=== PATIENT | female | born 1995 ===

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

== ENCOUNTER 2018-02-02 10:53 | Emergency (ER) | payer MEDICAID ==
[2018-02-02 11:14] VITALS: BMI 20.7
--- NOTE | 2018-02-02 11:57 | ED PDOC ---
HPI: Abdomen Time Seen by Provider: 02/02/18 11:56 Chief Complaint (Nursing): Abdominal Pain Chief Complaint (Provider): PELVIC PAIN History Per: Patient (22 Y/O FEMALE H/O CHLAMYDIA LAST YEAR HERE WITH PELVIC PAIN INTERMITTENT X 2 MONTHS. PATIENT CONCERNED FOR STD. STATES SHE IS SEXUALLY ACTIVE NOT USING PROTECTION. DENIES ANY DYSURIA/FEVERS/CHILLS/ VOMITING.) Past Medical History Reviewed: Historical Data, Nursing Documentation, Vital Signs Vital Signs: Last Vital Signs Temp 97.9 F 02/02/18 11:13 Pulse 80 02/02/18 11:13 Resp 18 02/02/18 11:13 BP 115/74 02/02/18 11:13 Pulse Ox 100 02/02/18 11:57 - Medical History PMH: Depression - Family History Family History: States: Unknown Family Hx - Immunization History Hx Tetanus Toxoid Vaccination: No Hx Influenza Vaccination: No Hx Pneumococcal Vaccination: No - Home Medications Home Medications: Ambulatory Orders Medication Instructions Recorded Nitrofurantoin Macrocrystals 1 cap PO BID #14 cap 01/03/17 [Macrobid] Phenazopyridine [Pyridium] 200 mg PO TID #15 tab 01/03/17 - Allergies Allergies/Adverse Reactions: Allergies Allergy/AdvReac Type Severity Reaction Status Date / Time No Known Allergies Allergy Verified 01/03/17 18:05 Review of Systems ROS Statement: Except As Marked, All Systems Reviewed And Found Negative Gastrointestinal: Positive for: Abdominal Pain Physical Exam - Reviewed Nursing Documentation Reviewed: Yes Vital Signs Reviewed: Yes - Physical Exam Appears: Positive for: Well, Non-toxic, No Acute Distress Head Exam: Positive for: ATRAUMATIC, NORMAL INSPECTION, NORMOCEPHALIC Skin: Positive for: Normal Color, Warm, DRY Eye Exam: Positive for: EOMI, Normal appearance, PERRL ENT: Positive for: Normal ENT Inspection Neck: Positive for: Normal, Painless ROM Cardiovascular/Chest: Positive for: Regular Rate, Rhythm Respiratory: Positive for: CNT, Normal Breath Sounds Gastrointestinal/Abdominal: Positive for: Normal Exam, Soft Pelvic Exam: Positive for: Other (NO CMT. MINIMAL TENDERNESS UTERUS/LEFT ADNEXAL ) Back: Positive for: Normal Inspection Extremity: Positive for: Normal ROM Neurologic/Psych: Positive for: Alert, Oriented - Laboratory Results Urine POC: Negative Urine dip results: Positive for: Leukocyte Esterase (TRACE ). 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 G/C SENT ZITHROMAX 1 GM PO X 1 DOSE ROCEPHIN 250 MG IM X 1 DOSE Disposition - Clinical Impression Clinical Impression: Pelvic pain - Patient ED Disposition Is Patient to be Admitted: No - Disposition Disposition: Routine/Home Disposition Time: 12:27 Condition: FAIR Instructions: Chronic Pelvic Pain (DC), Condom Options
[2018-02-02] MEDS ORDERED: cefTRIAXone (Rocephin) 250 mg Inj IM ONE (12:10)
[2018-02-02 12:24] LABS: SQUAMOUS EPITHIAL 25 /hpf (0-5); URINE BILIRUBIN NEGATIVE (NEGATIVE); URINE BLOOD NEGATIVE (NEGATIVE); URINE CLARITY CLOUDY (Clear); URINE COLOR YELLOW (YELLOW); URINE GLUCOSE (UA) NEG (Normal); URINE LEUKOCYTE ESTERASE SMALL Leu/uL (Negative); URINE PROTEIN 30 mg/dL (NEGATIVE); URINE UROBILINOGEN 0.2-1.0 mg/dL (0.2-1.0)
[2018-02-02] MEDS ORDERED: cefTRIAXone (Rocephin) 250 mg Inj ONE (12:40)
[2018-02-02] MEDS ORDERED: Sterile Water 10 ML IV ONE (12:43)
[2018-02-02 13:14] VITALS: BP 110/70; PULSE 68; RESP 14; TEMP 97.1; O2SAT 99
== END 2018-02-02 13:13 | disposition home or self-care (01) ==
LOC: H.ER 10:53
DX: R10.2 Pelvic and perineal pain (principal); Z86.59 Personal history of other mental and behavioral disorders
CPT/HCPCS: 81003; 81025; 87086; 87491; 87591; 96372; 99284; J0696

== ENCOUNTER 2018-08-25 16:25 | Emergency (ER) | payer MEDICAID, OTHER ==
[2018-08-25 16:25] VITALS: BMI 20.7
[2018-08-25 17:32] VITALS: RESP 16
[2018-08-25] MEDS ORDERED: cefTRIAXone (Rocephin) 250 mg Inj IM STA (17:37)
--- NOTE | 2018-08-25 17:43 | ED PDOC ---
HPI: Influenza Time Seen by Provider: 08/25/18 17:31 Chief Complaint: Cough, Cold, Congestion History Per: Patient Exam Limitations: no limitations Have you had recent travel within the past 21 days to any of: No Onset/Duration Of Symptoms: Days Symptoms include: fever (subjective), sore throat, cough Sick Contacts (Context): Family Member(s) Additional complaint(s):: 23 yo F with no medical problems presents with 2 complaints. First is 3 weeks of vaginal discharge or odor. She has been seen by her PMD twice, first told it was BV, started on antibiotics without improvement, then told yeast infection and completed treatment again with no improvement. She reports she is sexually active, uses condoms but has concerns for STDs and wants testing and treatment. Pt denies abdominal pain, nausea, vomiting, urinary symptoms, dysuria, hematuria, back pain. Second complaint in over 1 week of what started as sore throat then cough productive of phlegm, subjective fever in the beginning. She has taken Tylenol, none today. She reports both of her sisters were diagnosed with the flu. She has pain when swallowing, which has gotten better. Pt is able to swallow, denies drooling or difficulty breathing, or recent travel. PMD: Dr. Guillermo Mae LMP: 08/07 Past Medical History Reviewed: Historical Data, Nursing Documentation, Vital Signs Vital Signs: Last Vital Signs Temp 98.9 F 08/25/18 17:31 Pulse 93 H 08/25/18 17:31 Resp 16 08/25/18 17:31 BP 149/74 08/25/18 17:31 Pulse Ox 100 08/25/18 17:31 - Medical History PMH: Depression - Family History Family History: States: Unknown Family Hx - Social History Current smoker - smoking cessation education provided: No Alcohol: Occasional Drugs: Denies - Immunization History Hx Tetanus Toxoid Vaccination: No Hx Influenza Vaccination: No Hx Pneumococcal Vaccination: No - Home Medications Home Medications: Ambulatory Orders Medication Instructions Recorded Nitrofurantoin Macrocrystals 1 cap PO BID #14 cap 01/03/17 [Macrobid] Phenazopyridine [Pyridium] 200 mg PO TID #15 tab 01/03/17 - Allergies Allergies/Adverse Reactions: Allergies Allergy/AdvReac Type Severity Reaction Status Date / Time No Known Allergies Allergy Verified 08/25/18 17:31 Review of Systems Constitutional: Positive for: Fever (subjective and resolved) Cardiovascular: Negative for: Chest Pain Respiratory: Positive for: Cough. Negative for: Shortness of Breath, Hemoptysis Gastrointestinal: Negative for: Nausea, Vomiting, Abdominal Pain Genitourinary Female: Positive for: Vaginal Discharge. Negative for: Dysuria, Frequency, Pelvic Pain, Rash Physical Exam - Reviewed Nursing Documentation Reviewed: Yes - Physical Exam Comments: GENERALIZED APPEARANCE: Patient is AAO x 3, in no acute distress. SKIN: Warm, dry; (-) cyanosis. EYES: (-) conjunctival pallor. ENMT: Mucous membranes moist.(+)mild tonsil erythema, (+) exudate on right, no enlargement, (-)trismus (-)uvula deviation (-)airway obstruction EARs: TMs wnl NECK: (-) tenderness, (-) stiffness, (-) lymphadenopathy CHEST AND RESPIRATORY: (-) rales, (-) rhonchi, (-) wheezes; breath sounds equalbilaterally, (+) dry cough HEART AND CARDIOVASCULAR: (-) irregularity; (-) murmur, (-) gallop. NEURO AND PSYCH: Mental status as above; (-) focal findings. ABDOMEN: Soft; (-) tenderness, (-) guarding, (-) rebound; (-) CVAtenderness. EXTREMITIES: (-) deformity Medical Decision Making Medical Decision Makin:35 initial eval pt with viral vs bacterial URI and vaginal discharge, possible STD -- Urinalysis --GC/Chlamydia test -- Zithromax and Ceftriaxone -- U preg -- rapid strep -- influenza a&b -- CXR -- Re eval 19:10 flu and strep negative, CXR report as below, likely viral URI UA shows no UTI, treated for GC/CHlamydia, pending results tomorrow Discussed results, diagnosis, treatment, return precautions and f/u with pt who is understanding, in agreement and stable for dc - ECG O2 Sat by Pulse Oximetry: 100 Disposition - Clinical Impression Clinical Impression: URI (upper respiratory infection), Vaginal discharge - Patient ED Disposition Is Patient to be Admitted: No Counseled Patient/Family Regarding: Studies Performed, Diagnosis, Need For Followup - Disposition Referrals: Guillermo Mae MD [Medical Doctor] - Disposition: Routine/Home Disposition Time: 19:22 Condition: IMPROVED Additional Instructions: Return to ED for new or worsening symptoms, fever >100.4, difficulty breathing, chest pain, abdominal pain, urinary symptoms. Follow up with your doctor. Alternate between Tylenol and Ibuprofen for pain. Rest, drink plenty of fluids to stay hydrated, hot and cold to soothe throat. Instructions: Viral Upper Respiratory Infection, Adult (DC), Vaginal Discharge in Adults Forms: [facility] ([place]) Print Language: ICELANDIC - POA Present On Arrival: None
[2018-08-25 18:18] LABS: SQUAMOUS EPITHIAL 8 /hpf (0-5); URINE BACTERIA RARE (<OCC); URINE BILIRUBIN NEGATIVE (NEGATIVE); URINE BLOOD NEGATIVE (NEGATIVE); URINE CLARITY SLIGHTY-CLOUDY (Clear); URINE COLOR YELLOW (YELLOW); URINE GLUCOSE (UA) NEG (NEGATIVE); URINE LEUKOCYTE ESTERASE TRACE Leu/uL (Negative); URINE PROTEIN 30 mg/dL (NEGATIVE); URINE UROBILINOGEN 0.2-1.0 mg/dL (0.2-1.0)
--- NOTE | 2018-08-25 18:56 | RAD ---
HISTORY: cough COMPARISON: Chest x-ray performed 11/09/16 TECHNIQUE: Chest PA and lateral, 2 views FINDINGS: LUNGS: No focal consolidation. Please note that chest x-ray has limited sensitivity for the detection of pulmonary masses. PLEURA: No significant pleural effusion identified. No definite pneumothorax . CARDIOVASCULAR: Heart size appears within normal limits. No atherosclerotic calcification present. OSSEOUS STRUCTURES: No acute osseous abnormality identified. VISUALIZED UPPER ABDOMEN: Unremarkable. OTHER FINDINGS: None. IMPRESSION: No focal consolidation.
[2018-08-25] MEDS ORDERED: cefTRIAXone (Rocephin) 250 mg Inj ONE (18:57)
[2018-08-25] MEDS ORDERED: Sterile Water 10 ML IV ONE (18:57)
[2018-08-25 19:48] VITALS: BP 132/70; PULSE 88; TEMP 98.2
[2018-08-25 19:57] VITALS: O2SAT 100
== END 2018-08-25 19:47 | disposition home or self-care (01) ==
LOC: H.ER 16:25
DX: J06.9 Acute upper respiratory infection, unspecified (principal); N89.8 Other specified noninflammatory disorders of vagina; Z86.59 Personal history of other mental and behavioral disorders
CPT/HCPCS: 71046; 81003; 81025; 87070; 87430; 87491; 87591; 87804; 96372; 99282; J0696